=== PATIENT | female | born 1995 | race Hispanic/Latino ===

== ENCOUNTER 2018-05-17 09:35 | Outpatient (CLI) | payer OTHER ==
--- NOTE | 2018-05-17 11:57 | ULT ---
OB ULTRASOUND: Date: 05/17/18 HISTORY: Size and dates. FINDINGS: A single, live intrauterine gestation is seen with measurements corresponding to an estimated gestati onal age of 19 weeks and 6 days, and DARRIAN at 10/05/[birth year]. The estimated weight measures 341 gm, or 12 oz. measurements are as follows: BPD: 4.56 cm, 19 weeks/5 days HC: 17.43 cm, 20 weeks/0 days AC: 15.19 cm, 20 weeks/3 days FL: 3.25 cm, 20 weeks/1 day heart rate measures 120 beats/minute. REGGIE measures 13.0 cm. The placenta is posterior frontal w ithout placenta previa. Three vessel cord, cord insertion, kidneys, bladder, stomach, four chamber heart, lateral ventr icles, cerebellum, spine, lips/nose, and upper/lower extremities are visualized. No definite an omalies are seen. IMPRESSION: Single, live intrauterine of 19 weeks and 6 days estimated gestational age, and DARRIAN at 04/2018. POS: SERINA
== END 2018-05-17 09:36 | disposition home or self-care (01) ==
LOC: NAV ULT 09:35
PROVIDERS: ATTEND Family Medicine
DX: Z34.02 Encounter for supervision of normal first pregnancy, second trimester (principal); Z3A.19 19 weeks gestation of pregnancy
CPT/HCPCS: 76805